=== PATIENT | female | born 1990 | race American Indian/Alaskan Native ===

== ENCOUNTER 2016-07-30 08:46 | Emergency (ER) | payer OTHER ==
[2016-07-30 09:08] VITALS: BP 107/70; PULSE 86; RESP 20; TEMP 98.1; O2SAT 99
--- NOTE | 2016-07-30 09:23 | C.PDOC ---
History Of Present Illness <Kristi Chaves - Last Filed: 07/30/16 09:18> <Dar Benavides - Last Filed: 07/30/16 09:57> Patient is a 25 year old female with no PMHx who presents with complaint of 3 weeks of chronic low back pain, /, "throbbing" in quality. The pain is worse when she is standing or extending her back. Patient has been taking Advil daily for her symptoms which has not been helping. She denies history of back pain and states that she is concerned that her symptoms have not improved. She is also complaining of 2 days of sore throat. Denies back trauma, urinary retention, dysuria, hematuria, chest pain, SOB, nausea, vomiting, incontinence, change in bowel movements, fever, chills, ear pain, body aches, fatigue, weakness, numbness, and tingling. (Kristi Chaves) History Per: Patient History/Exam Limitations: no limitations Onset/Duration Of Symptoms: Days Current Symptoms Are (Timing): Still Present Quality Of Discomfort: Aching, Other (throbbing ) Severity: Severe Pain Scale Rating Of: 10 Previous Symptoms: Back Pain Exacerbating Factor(s): Movement, Standing Recent travel outside of the [place]: No <Kristi Chaves - Last Filed: 07/30/16 09:18> <Dar Benavides - Last Filed: 07/30/16 09:57> Time Seen by Provider: 07/30/16 09:17 Chief Complaint (Nursing): Back Pain Past Medical History Reviewed: Vital Signs - Medical History PMH: No Chronic Diseases Surgical History: No Surg Hx Family History: States: No Known Family Hx Other Family History: Father and Mother healthy - Social History Hx Tobacco Use: No Hx Alcohol Use: No Hx Substance Use: No - Immunization History Hx Tetanus Toxoid Vaccination: No Hx Influenza Vaccination: No Hx Pneumococcal Vaccination: No <Kristi Chaves - Last Filed: 07/30/16 09:18> Vital Signs: Last Vital Signs Temp 98.1 F 07/30/16 09:05 Pulse 86 07/30/16 09:05 Resp 20 07/30/16 09:05 BP 107/70 07/30/16 09:05 Pulse Ox 99 07/30/16 09:30 - [facility] Procedures SKIN & SUBQ INCISION NEC (11/26/12) TETANUS TOXOID ADMINIST (11/26/12) Review Of Systems Except As Marked, All Systems Reviewed And Found Negative. ENT: Positive for: Throat Pain Musculoskeletal: Positive for: Back Pain <AndieJovanKristi - Last Filed: 07/30/16 09:18> Physical Exam - Physical Exam Appears: Well, Non-toxic, No Acute Distress Skin: Normal Color, Dry Head: Atraumatic Eye(s): bilateral: Normal Inspection, PERRL, EOMI Ear(s): Bilateral: Normal Nose: Normal Oral Mucosa: Moist Tongue: Normal Appearing Lips: Normal Appearing Throat: Normal, No Erythema, No Exudate Neck: Normal Lymphatic: Normal Exam Cardiovascular: Rhythm Regular Respiratory: Normal Breath Sounds, No Rales, No Rhonchi, No Wheezing Gastrointestinal/Abdominal: Normal Exam, No Tenderness Back: No CVA Tenderness, No Vertebral Tenderness, Paraspinal Tenderness (L5-S1 ttp ) Extremity: Normal ROM, No Pedal Edema Neurological/Psych: Oriented x3, Normal Speech, Normal Cognition, Normal Cranial Nerves Pain Response: No Response To Pain Gait: Steady <AndieKristi - Last Filed: 07/30/16 09:18> ED Course And Treatment - Laboratory Results Lab Interpretation: Normal O2 Sat by Pulse Oximetry: 99 <Jose MartinsusanaKristi - Last Filed: 07/30/16 09:18> Medical Decision Making <Kristi Chaves - Last Filed: 07/30/16 09:18> <Dar Benavides - Last Filed: 07/30/16 09:57> Medical Decision Making: Seen and examined with resident. 25 y/o F p/w back pain without fever, numbness , weakness, urinary or bowel symptoms and no midline tenderness on exam. (Dar Benavides) Disposition Discussed With : Dar Benavides Doctor Will See Patient In The: Office Counseled Patient/Family Regarding: Studies Performed, Diagnosis, Need For Followup, Rx Given - POA Present On Arrival: None <AndieKristi - Last Filed: 07/30/16 09:18> - Disposition Disposition Time: 09:57 <Dar Benavides - Last Filed: 07/30/16 09:57> - Disposition Referrals: Patty Salazar MD [Non-Staff] - Disposition: HOME/ ROUTINE Condition: GOOD Additional Instructions: Patient to be discharged home with medications. She should return to the ED should she experience recurrence of her symptoms or if she has any other concerns. Instructions were explained to the patient who understands. Prescriptions: Cyclobenzaprine [Cyclobenzaprine HCl] 10 mg PO HS #14 tab Naproxen 500 mg PO BID #28 tab Instructions: Muscle Strain (DC), Low Back Strain (DC) Forms: Work Excuse - Clinical Impression Clinical Impression: Low back strain
== END 2016-07-30 10:00 | disposition home or self-care (01) ==
LOC: C.ER 08:46
DX: S39.012A Strain of muscle, fascia and tendon of lower back, initial encounter (principal); X58.XXXA Exposure to other specified factors, initial encounter; Y93.9 Activity, unspecified; Y92.9 Unspecified place or not applicable
CPT/HCPCS: 96372; 99283; J1885

== ENCOUNTER 2016-08-29 16:52 | Emergency (ER) | payer OTHER ==
[2016-08-29 17:19] VITALS: BP 128/83; PULSE 80; RESP 18; TEMP 98; O2SAT 100
--- NOTE | 2016-08-29 17:29 | C.PDOC ---
History Of Present Illness 76 y/o female referred to ED from [facility] for evaluation of skin rash to left forearm. Pt reports red rash with localized swelling to left forearm which onset yesterday and is now resolved but still has persistent mild swelling. Pt denies itching, or any other associated symptoms. REFERRED FROM [facility] FOR SKIN RASH EVAL. RED RASH W LOCAL SWELL L FOREARM ONSET YEST, NOW RESOLVED BUT STILL W PERSIST MILD SWELL. NO ITCH, OTHER ASSOC SX OR LOCATIONS EXAM SKIN MILD LOCAL NONPITTING EDEMA DISTAL L INNER FOREARM PROX TO WRIST. NONTEND, NO ERYTHEMA. PICTURE OF RASH TAKEN BY PT YEST SUGGESTIVE OF HIVES. INTACT EXT L FOREARM ATRAUM, NO SWELL AROM WO DIFF Time Seen by Provider: 08/29/16 16:58 Chief Complaint (Nursing): Abnormal Skin Integrity History Per: Patient History/Exam Limitations: no limitations Onset/Duration Of Symptoms: Hrs Current Symptoms Are (Timing): Better Quality Of Symptoms: Swollen Severity: Mild Recent travel outside of the [place]: No Past Medical History Reviewed: Historical Data, Nursing Documentation, Vital Signs Vital Signs: Last Vital Signs Temp 98 F 08/29/16 17:04 Pulse 80 08/29/16 17:04 Resp 18 08/29/16 17:04 BP 128/83 08/29/16 17:04 Pulse Ox 100 08/29/16 17:28 - [facility] Procedures SKIN & SUBQ INCISION NEC (11/26/12) TETANUS TOXOID ADMINIST (11/26/12) Family History: States: Unknown Family Hx - Social History Hx Tobacco Use: No Hx Alcohol Use: No Hx Substance Use: No - Immunization History Hx Tetanus Toxoid Vaccination: No Hx Influenza Vaccination: No Hx Pneumococcal Vaccination: No Review Of Systems Except As Marked, All Systems Reviewed And Found Negative. Constitutional: Negative for: Fever, Chills Skin: Positive for: Rash (Red rash to left forearm, now resolved. Persistent mild swelling to same area) Physical Exam - Physical Exam Appears: Non-toxic, No Acute Distress Skin: Warm, Dry, Other (Mild local nonpitting edema to distal left inner forearm proximal to wrist; nontender, no erythema. Picture of rash taken by patient yesterday suggestive of hives) Head: Atraumatic, Normacephalic Nose: Normal Oral Mucosa: Moist Neck: Normal ROM, Supple Extremity: Other (Left forearm atraumatic, no swelling, AROM without difficulty) Neurological/Psych: Oriented x3, Normal Motor, Normal Sensation ED Course And Treatment O2 Sat by Pulse Oximetry: 100 (on room air) Pulse Ox Interpretation: Normal Disposition Counseled Patient/Family Regarding: Diagnosis, Need For Followup - Disposition Referrals: YOUR,PMD [Other] Disposition: HOME/ ROUTINE Disposition Time: 17:28 Condition: GOOD Instructions: Urticaria (ED) Forms: Work Excuse - Clinical Impression Clinical Impression: Hive - Scribe Statement The provider has reviewed the documentation as recorded by the Parker Mckeon Provider Attestation: All medical record entries made by the Pakrer were at my direction and personally dictated by me. I have reviewed the chart and agree that the record accurately reflects my personal performance of the history, physical exam, medical decision making, and the department course for this patient. I have also personally directed, reviewed, and agree with the discharge instructions and disposition.
== END 2016-08-29 17:36 | disposition home or self-care (01) ==
LOC: C.ER 16:52
DX: L50.9 Urticaria, unspecified (principal)

== ENCOUNTER 2017-01-20 09:01 | Emergency (ER) | payer OTHER ==
[2017-01-20 09:37] VITALS: RESP 16; TEMP 99.2
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
[2017-01-20 09:59] VITALS: BP 105/72; PULSE 85
[2017-01-20 13:46] VITALS: O2SAT 99
== END 2017-01-20 09:58 | disposition home or self-care (01) ==
LOC: C.ER 09:01
DX: Z04.1 Encounter for examination and observation following transport accident (principal)

== ENCOUNTER 2017-06-30 19:52 | Emergency (ER) | payer OTHER ==
[2017-06-30 20:55] VITALS: BP 117/80; PULSE 100; RESP 20; TEMP 98.4; O2SAT 100
== END 2017-06-30 21:51 | disposition left against medical advice (07) ==
LOC: C.ER 19:52
DX: Z02.89 Encounter for other administrative examinations (principal); R42 Dizziness and giddiness

== ENCOUNTER 2017-08-05 13:49 | Emergency (ER) | payer OTHER ==
[2017-08-05 13:59] VITALS: BP 114/75; PULSE 82; RESP 20; TEMP 99.2; O2SAT 99
--- NOTE | 2017-08-05 14:23 | C.PDOC ---
History Of Present Illness 26-year-old female, presents to the emergency department with complaints of left ear pain since yesterday afternoon, associated with muffled hearing. Denies fever, headache, dizziness, neck pain or any other associated symptoms. No other complaints at this time. Time Seen by Provider: 08/05/17 14:07 Chief Complaint (Nursing): ENT Problem History Per: Patient History/Exam Limitations: None Onset/Duration Of Symptoms: Days Current Symptoms Are (Timing): Still Present Past Medical History Reviewed: Historical Data, Nursing Documentation, Vital Signs Vital Signs: Last Vital Signs Temp 99.2 F 08/05/17 13:57 Pulse 82 08/05/17 13:57 Resp 20 08/05/17 13:57 BP 114/75 08/05/17 13:57 Pulse Ox 99 08/05/17 15:24 - Medical History PMH: No Chronic Diseases - [facility] Procedures SKIN & SUBQ INCISION NEC (11/26/12) TETANUS TOXOID ADMINIST (11/26/12) Family History: States: No Known Family Hx - Social History Hx Tobacco Use: No Hx Alcohol Use: No Hx Substance Use: No - Immunization History Hx Tetanus Toxoid Vaccination: No Hx Influenza Vaccination: No Hx Pneumococcal Vaccination: No Review Of Systems Constitutional: Negative for: Fever, Chills ENT: Positive for: Ear Pain. Negative for: Ear Discharge, Nose Discharge, Nose Congestion, Throat Pain Respiratory: Negative for: Cough Musculoskeletal: Negative for: Neck Pain Skin: Negative for: Rash Neurological: Negative for: Headache, Dizziness Physical Exam - Physical Exam Appears: Non-toxic, No Acute Distress Skin: Warm, Dry, No Rash Head: Atraumatic, Normacephalic Eye(s): bilateral: Normal Inspection, PERRL, EOMI Ear(s): Left: TM Obscured By Wax, Right: Normal Nose: Normal, No Flaring Oral Mucosa: Moist Lips: Normal Appearing Neck: Normal ROM Chest: Symmetrical Cardiovascular: Rhythm Regular, No Murmur Respiratory: Normal Breath Sounds, No Accessory Muscle Use Extremity: Normal ROM, No Deformity, No Swelling Neurological/Psych: Oriented x3, Normal Speech Gait: Steady ED Course And Treatment O2 Sat by Pulse Oximetry: 99 (RA) Pulse Ox Interpretation: Normal Medical Decision Making Medical Decision Making: Impression: Ear wax impaction Patient will be discharged with an Rx for Debrox. May need lavage in few days. Asked to f/u outpatient w/ clinic. Disposition Counseled Patient/Family Regarding: Diagnosis, Need For Followup, Rx Given - Disposition Referrals: Belen Staples MD [Medical Doctor] - Wilbert Beal MD [Staff Provider] - Disposition: HOME/ ROUTINE Disposition Time: 14:23 Condition: GOOD Additional Instructions: You prescription was sent to [facility] pharmacy Apply drops to affected ear for about one week. Follow up with ENT or clinic for further evaluation Prescriptions: Carbamide Peroxide [Debrox 15 Ml] 1 drop BID #1 bottle Instructions: Ear Wax Impaction Forms: [employer] (Hebrew) - POA Present On Arrival: None - Clinical Impression Clinical Impression: Impacted cerumen of left ear - Scribe Statement The provider has reviewed the documentation as recorded by the Scribe (Blair Bell) All medical record entries made by the Scribe were at my direction and personally dictated by me. I have reviewed the chart and agree that the record accurately reflects my personal performance of the history, physical exam, medical decision making, and the department course for this patient. I have also personally directed, reviewed, and agree with the discharge instructions and disposition.
== END 2017-08-05 14:37 | disposition home or self-care (01) ==
LOC: C.ER 13:49
DX: H61.22 Impacted cerumen, left ear (principal)

== ENCOUNTER 2017-08-11 17:43 | Emergency (ER) | payer OTHER ==
[2017-08-11 17:56] VITALS: BP 118/78; PULSE 83; RESP 20; TEMP 98.1; O2SAT 99
--- NOTE | 2017-08-11 18:32 | C.PDOC ---
History Of Present Illness 26 year old female presents to the ED c/o left ear pain and decreased hearing for the past week. Patient was evaluated on ED 08/05, given Debrox with no relief. Patient denies fever, ear discharge, nausea, vomit, headache, recent travel, sick contacts. Time Seen by Provider: 08/11/17 18:19 Chief Complaint (Nursing): ENT Problem History Per: Patient History/Exam Limitations: None Onset/Duration Of Symptoms: Days Current Symptoms Are (Timing): Still Present Quality (Ear): Pain W/Touch, Discharge Severity: None Anticoagulant/Antiplatlet Use?: No Recent Aspirin Use: No Past Medical History Reviewed: Historical Data, Nursing Documentation, Vital Signs Vital Signs: Last Vital Signs Temp 98.1 F 08/11/17 17:52 Pulse 83 08/11/17 17:52 Resp 20 08/11/17 17:52 BP 118/78 08/11/17 17:52 Pulse Ox 99 08/11/17 19:51 - Medical History PMH: No Chronic Diseases Surgical History: No Surg Hx - [facility] Procedures SKIN & SUBQ INCISION NEC (11/26/12) TETANUS TOXOID ADMINIST (11/26/12) Family History: States: Unknown Family Hx - Social History Hx Tobacco Use: No Hx Alcohol Use: No Hx Substance Use: No - Immunization History Hx Tetanus Toxoid Vaccination: No Hx Influenza Vaccination: No Hx Pneumococcal Vaccination: No Review Of Systems Constitutional: Negative for: Fever, Chills ENT: Positive for: Ear Pain, Ear Discharge Cardiovascular: Negative for: Chest Pain Respiratory: Negative for: Cough, Shortness of Breath Skin: Negative for: Rash Physical Exam - Physical Exam Appears: Non-toxic, No Acute Distress Skin: Normal Color, Warm, Dry Head: Atraumatic, Normacephalic Eye(s): bilateral: Normal Inspection, EOMI Ear(s): Left: TM Obscured By Wax, Other ((-) mastoid tenderness), Right: Normal Nose: No Discharge Oral Mucosa: Moist Throat: Normal, No Erythema, No Exudate Neck: Normal ROM, Supple Chest: Symmetrical Respiratory: No Accessory Muscle Use Extremity: Normal ROM Neurological/Psych: Oriented x3, Normal Speech Gait: Steady ED Course And Treatment O2 Sat by Pulse Oximetry: 99 (On RA) Pulse Ox Interpretation: Normal Progress Note: Patient had her left ear irrigated and cerumen was partially removed. Patient states she felt "million times better". Patient was advised to follow up with PMD and ENT in 1-2 days. Disposition - Disposition Referrals: Wilbert Beal MD [Staff Provider] - Disposition: HOME/ ROUTINE Disposition Time: 18:31 Condition: STABLE Additional Instructions: Follow up with ENT in 1-2 days. Return to ER if symptoms persist or worsen. Instructions: Ear Wax Impaction (DC) Forms: [employer] (Belarusian) - Clinical Impression Clinical Impression: Impacted cerumen of left ear - PA / [employer] SAL[employer] CLERK / Resident Statement MD/DO has reviewed & agrees with the documentation as recorded. - Scribe Statement The provider has reviewed the documentation as recorded by the Scribe Jordan Nava All medical record entries made by the Scribe were at my direction and personally dictated by me. I have reviewed the chart and agree that the record accurately reflects my personal performance of the history, physical exam, medical decision making, and the department course for this patient. I have also personally directed, reviewed, and agree with the discharge instructions and disposition.
== END 2017-08-11 18:36 | disposition home or self-care (01) ==
LOC: C.ER 17:43
DX: H61.22 Impacted cerumen, left ear (principal)